=== PATIENT | male | born 1970 | race Caucasian/White ===

== ENCOUNTER 2019-04-17 07:53 | Day surgery (SDC) | payer OTHER ==
[~2019-04-17 07:53] MED LIST: Lactated Ringers 1,000 ML IV SCH; Lidocaine 1%/Sod Bicarbonate in NS 8.4% 1 ML Syringe IDERM PRN; Sodium Chloride 0.9% 10 ML Syringe FLUSH PRN
[2019-04-17] MEDS ORDERED: Propofol 200 MG/20 ML SDV ONE ×2 (08:08→08:09)
[2019-04-17] MEDS ORDERED: fentaNYL 250 MCG/5 ML SDV ONE (08:24)
[2019-04-17] MEDS ORDERED: Midazolam 1 MG/ML 2 ML SDV ONE (08:24)
[2019-04-17] MEDS ORDERED: Lidocaine 1% 8 ML ONE (08:25)
[2019-04-17] MEDS ORDERED: Rocuronium 50 MG/5 ML Vial ONE ×2 (08:25→11:13)
[2019-04-17] MEDS ORDERED: Succinylcholine/Sod PF 100 MG/5 ML SYRINGE IV ONE (08:25)
[2019-04-17] MEDS ORDERED: Lidocaine 1% 50 ML MDV ONE (08:46)
[2019-04-17] MEDS ORDERED: Albuterol 0.083% 2.5 MG/3 ML Neb Soln ONE (08:53)
[2019-04-17] MEDS ORDERED: Albuterol 0.083% 2.5 MG/3 ML Neb Soln NEB ONE (09:00)
[2019-04-17] MEDS ORDERED: HYDROmorphone 0.5 MG/0.5 ML Syringe IVPUSH PRN (09:15)
[2019-04-17] MEDS ORDERED: fentaNYL 100 MCG/2 ML SDV IVPUSH PRN (09:15)
[2019-04-17] MEDS ORDERED: diphenhydrAMINE 50 MG/ML SDV IVPUSH PRN (09:15)
[2019-04-17] MEDS ORDERED: Ondansetron 4 MG/2 ML SDV IVPUSH PRN (09:15)
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
[2019-04-17] MEDS ORDERED: ceFAZolin 1 GM Vial ONE (09:47)
[2019-04-17] MEDS ORDERED: Ketamine 500 mg/10 ML MDV ONE (09:58)
[2019-04-17] MEDS ORDERED: Dexamethasone 4 MG/ML 5 ML MDV ONE (10:00)
[2019-04-17] MEDS ORDERED: Ketorolac 30 MG/ML SDV ONE (10:00)
[2019-04-17] MEDS ORDERED: Lactated Ringers 0 ML ONE (10:02)
[2019-04-17] MEDS ORDERED: Lactated Ringers 1,000 ML ONE ×2 (10:03→14:33)
[2019-04-17] MEDS ORDERED: HYDROmorphone 0.5 MG/0.5 ML Syringe ONE ×2 (10:31→10:32)
[2019-04-17] MEDS ORDERED: ePHEDrine Sulfate/0.9% NaCl/Pf 25 MG/5 ML SYRINGE IV ONE (10:47)
[2019-04-17] MEDS ORDERED: Albuterol 6.7 GM Inhaler INH ONE (12:17)
--- NOTE | 2019-04-17 12:51 | PCM.POSTAN ---
POST ANESTHESIA ASSESSMENT - MENTAL STATUS Mental Status: Somnolent - VITAL SIGNS Vital Signs: Last Vital Signs Temp 36.3 C 04/17/19 12:36 Pulse 95 04/17/19 12:36 Resp 19 04/17/19 12:36 BP 145/71 H 04/17/19 12:36 Pulse Ox 93 L 04/17/19 12:36 - RESPIRATORY Respiratory Status: Respiratory Rate WNL, Airway Patent, Supplemental Oxygen - CARDIOVASCULAR CV Status: Pulse Rate WNL, Blood Pressure Stable - GASTROINTESTINAL GI Status: No Symptoms - PAIN Pain Score: 0 - POST OP HYDRATION Hydration Status: Adequate & Stable
--- NOTE | 2019-04-17 14:36 | PCM48HPAN ---
Post Anesthesia Note - EVALUATION WITHIN 48HRS OF ANESTHETIC Vital Signs in Normal Range: Yes Patient Participated in Evaluation: Yes Respiratory Function Stable: Yes (95% current saturations, recommended CPAP at home ) Airway Patent: Yes Cardiovascular Function Stable: Yes Hydration Status Stable: Yes Pain Control Satisfactory: Yes (pts pain will be treated by RN) Nausea and Vomiting Control Satisfactory: Yes Mental Status Recovered: Yes Vital Signs: Last Vital Signs Temp 36.4 C 04/17/19 13:36 Pulse 73 04/17/19 14:30 Resp 17 04/17/19 14:30 BP 141/89 H 04/17/19 14:30 Pulse Ox 93 L 04/17/19 14:30
--- NOTE | 2019-04-18 08:10 | OR ---
DATE OF OPERATION: 04/17/2019 SURGEON: Jose Eduardo Larson MD PREOPERATIVE DIAGNOSIS: Umbilical hernia with incarceration. POSTOPERATIVE DIAGNOSIS: Umbilical hernia with incarceration. OPERATION PERFORMED: Laparoscopic umbilical hernia repair with mesh. ANESTHESIA: General endotracheal. ESTIMATED BLOOD LOSS: About 10 mL. COMPLICATIONS: None. NEED FOR ASSISTANCE: Skilled assistance was needed in this case. Hydro Generation Manager helped with patient positioning, holding the camera during the operation, and wound dressing at the end of the case. INDICATIONS AND CONSENT: The patient is a 49-year-old male who has had umbilical hernia for several years. This has been getting larger as the patient is also morbidly obese with BMI of 49.9. The umbilicus eventually was not reducible with contents in there, was causing some mild pain. Therefore, the patient did not attempt to reduce it further. This has been going on for several months. Eventually, the patient presented to my clinic wanting to repair as the abdominal pain was slightly getting worse with time. I evaluated the patient. On exam, the umbilical hernia was protruding with contents in the hernia. Attempts to reduce the hernia produced some pain. Therefore, I did not reduce the hernia completely. I did discuss with the patient that this is the time to repair this hernia. The hernia was about 3 to 4 cm on clinical exam. I discussed with the patient risks, benefits, and the alternatives. Risks include infection, bleeding, wound complications, infection off the mesh, blood clots, pain, recurrence, injury, and possible need for further interventions. The patient understood and agreed to proceed with the procedure. Informed consent was obtained. DESCRIPTION OF PROCEDURE: The patient was taken to the operating room and placed in the supine position. Following the induction of general endotracheal anesthesia, preop antibiotics consisting of Ancef were provided. SCDs were placed. The patient was padded appropriately. Then, a formal time-out was performed. Then, the procedure was started. We began by accessing the abdomen with a Veress needle in the left upper quadrant and insufflating the abdomen to 15 mmHg. Then, a 5 mm trocar was placed in the left lateral abdomen under direct visualization of laparoscope. Upon inspection of the abdomen, there was no injury due to Veress needle insertion or trocar insertion. Then, 2 additional trocars, one 12 mm, and another one 5 mm, were placed in the left lateral abdomen caudally from the prior trocar. Then, clearly, omentum could be seen entering the umbilical hernia defect. This was taken down bluntly with graspers while applying pressure to the umbilical hernia. There was a large amount of omentum incarcerated into the umbilical hernia. These were all reduced into the abdomen. Bleeding from this reduction was minimal. There was no use of cautery. Once this was done, the edges of the hernia defect were cauterized slightly to allow healing of the defect. After this was done, the defect was measured to be 3.5 cm, and this was closed using 0 PDS stitches in a transfascial fashion using Solis-Catina device. Once the hernia defect was reapproximated, it was determined that an 11.4 cm diameter mesh will be sufficient to cover this hernia defect. Therefore, 11 cm rounded mesh was brought into the field. It was marked appropriately, and stay sutures were placed in each of the 4 corners using 2-0 Prolene stitches. Then, once the abdomen was marked appropriately and the mesh marked, the mesh was placed into the abdominal cavity through the 12 mm trocar, and the stay sutures were retrieved through the stab incision made through the abdominal wall. The mesh was placed in such a way that after stitches were placed and tied down, it was lying flat across the abdominal wall without any wrinkles. The SorbaFix device was used to place tacks around the mesh in a double crown fashion, and additional tacks were placed through the mid of the mesh to make sure the mesh was tightly adherent to the abdomen. Once this was done, the 12 mm trocar site was closed at the fascia level with 0 Vicryl stitches, and the skin at all incision sites was closed with 4-0 Monocryl suture. Stab incisions were not closed with any suture, but Dermabond. Dermabond was applied to all the incision sites. Once this was done, the redundant skin at the umbilicus was tacked down with pressure dressings, and an abdominal binder was applied to the patient. Of note, 1% lidocaine plain was injected through the abdomen in all incision sites. This marked the end of the procedure. At the end of the procedure, all instruments, sharps, and sponges were accounted and found to be correct x2. The patient will be taken to the PACU for recovery. The plan is for the patient to return home today and continue postop care at home. The patient will come back to clinic in 2 weeks for postop check. BERNARDO /[id number] MTDMichael
== END 2019-04-17 14:50 | disposition home or self-care (01) ==
LOC: JD.SDS 07:53
PROVIDERS: ATTEND Surgery
DX: K42.0 Umbilical hernia with obstruction, without gangrene (principal); G47.33 Obstructive sleep apnea (adult) (pediatric); G89.29 Other chronic pain; E66.01 Morbid (severe) obesity due to excess calories; Z90.49 Acquired absence of other specified parts of digestive tract; Z79.899 Other long term (current) drug therapy; Z79.82 Long term (current) use of aspirin; Z98.890 Other specified postprocedural states; Z88.8 Allergy status to other drugs, medicaments and biological substances; Z91.018 Allergy to other foods; Z68.42 Body mass index [BMI] 45.0-49.9, adult; Z99.89 Dependence on other enabling machines and devices
CPT/HCPCS: 36415; 49653; 80053; 85025; 93005; 94640; A9270; J0171; J0330; J0690; J1100; J1170; J1885; J2001; J2250; J2370; J2704; J2710; J3010; J7120; 00790

== ENCOUNTER 2020-04-15 09:07 | Emergency (ER) | payer OTHER ==
--- NOTE | 2020-04-15 09:28 | EDM.PDOC ---
ED HPI GENERAL MEDICAL PROBLEM - General Chief Complaint: Lower Extremity Injury/Pain Stated Complaint: RT ANKLE PAIN Time Seen by Provider: 04/15/20 09:20 Source of Information: Reports: Patient History Limitations: Reports: No Limitations - History of Present Illness INITIAL COMMENTS - FREE TEXT/NARRATIVE: 50-year-old male attends the ED complaining of severe pain in his right ankle. No known injury. Symptoms started on April 12. Pain is primarily localized to the distal Achilles tendon at insertion into the calcaneus. He states he is walking with a significant limp. No problems with the left foot. He has no history of gout. He has no pain in his metatarsal joints or midfoot. Shoes are relatively new. Onset: Gradual Onset Date: 04/12/20 Duration: Day(s):, Constant, Getting Worse Location: Reports: Lower Extremity, Right (Right posterior) Quality: Reports: Ache ( foot at the insertion site of the Achilles tendon.), Throbbing Severity: Moderate Improves with: Reports: Rest Worsens with: Reports: Other Context: Denies: Activity, Exercise (Weightbearing and walking. Walks without definitive limp.), Lifting, Sick Contact, Trauma, Other Associated Symptoms: Denies: Confusion, Chest Pain, Cough, cough w sputum, Diaphoresis, Fever/Chills, Headaches, Loss of Appetite, Malaise, Nausea/Vomiting, Rash, Seizure, Shortness of Breath, Syncope, Weakness Right Ankle Pain Score (Numeric/FACES): 10 - Related Data Allergies Allergy/AdvReac Type Severity Reaction Status Date / Time nut - unspecified Allergy Anaphylactic Verified 04/15/20 09:21 Shock aspartame AdvReac Headache Verified 04/15/20 09:21 topiramate AdvReac Change Verified 04/15/20 09:21 Mental Status Home Meds: Home Meds Albuterol Sulfate [Albuterol Sulfate Hfa] 2 puff IH Q6H PRN 04/14/19 [History] Aspirin [Halfprin] 81 mg PO DAILY 04/14/19 [History] Budesonide/Formoterol [Symbicort 160-4.5 MCG] 2 puff INH BID PRN 04/14/19 [History] Cholecalciferol (Vitamin D3) [Vitamin D3] 4,000 unit PO DAILY 04/14/19 [History] Loratadine [Claritin] 10 mg PO DAILY 04/14/19 [History] Docusate Sodium [Colace] 100 mg PO BID 15 Days #30 capsule 04/17/19 [Rx] Fluticasone Propionate [Flonase] 2 inh NASBOTH DAILY 04/17/19 [History] oxyCODONE 5 mg PO Q4H PRN 4 Days #24 tab 04/17/19 [Rx] Diclofenac Sodium [Voltaren] 75 mg PO BIDMEALS #24 tab.cr 04/15/20 [Rx] predniSONE [Prednisone] 20 mg PO ASDIRECTED #18 tablet 04/15/20 [Rx] Past Medical History HEENT History: Reports: Allergic Rhinitis, Impaired Vision, Other (See Below) Other HEENT History: Keratoconus Cardiovascular History: Reports: None Respiratory History: Reports: Asthma, Sleep Apnea Gastrointestinal History: Reports: Other (See Below) Other Gastrointestinal History: Umbilical hernia Genitourinary History: Reports: None Musculoskeletal History: Reports: None Neurological History: Reports: Migraines Psychiatric History: Reports: None Endocrine/Metabolic History: Reports: Obesity/BMI 30+, Vitamin D Deficiency Hematologic History: Reports: None Immunologic History: Reports: None Oncologic (Cancer) History: Reports: None Dermatologic History: Reports: Psoriasis - Past Surgical History Head Surgeries/Procedures: Reports: None HEENT Surgical History: Reports: None Cardiovascular Surgical History: Reports: None Respiratory Surgical History: Reports: None GI Surgical History: Reports: Appendectomy Male Surgical History: Reports: None Endocrine Surgical History: Reports: None Neurological Surgical History: Reports: None Musculoskeletal Surgical History: Reports: None Oncologic Surgical History: Reports: None Dermatological Surgical History: Reports: None Social & Family History - Caffeine Use Caffeine Use: Reports: Soda - Living Situation & Occupation Living situation: Reports: Single Occupation: Employed Review of Systems - Review of Systems Review Of Systems: See Below Constitutional: Denies: Chills, Diaphoresis, Fever, Weakness, Other Eyes: Reports: Glasses Ears: Reports: No Symptoms Nose: Reports: No Symptoms Mouth/Throat: Reports: No Symptoms Respiratory: Reports: Shortness of Breath, Wheezing, Cough. Denies: Pleuritic Chest Pain (History of asthma.), Sputum (Occasional cough), Hemoptysis Cardiovascular: Denies: Chest Pain, Edema, Irregular Heart Rate, Lightheadedness GI/Abdominal: Reports: No Symptoms Genitourinary: Reports: No Symptoms Musculoskeletal: Reports: Back Pain (Occasional.) Skin: Reports: No Symptoms Neurological: Reports: No Symptoms Psychiatric: Reports: No Symptoms ED EXAM, GENERAL - Physical Exam Exam: See Below Exam Limited By: No Limitations General Appearance: Alert, WD/WN, No Apparent Distress, Other (He is resting with his right foot up on a pillow.) Eye Exam: Bilateral Eye: Normal Inspection Extremities: Other (Emanation of his right lower extremity shows very minimal to dependent edema. Mild popliteal swelling suggesting Benjamin's cyst. No clinical evidence of DVT. Color is normal. Pain is localized to the insertion of the Achilles tendon posteriorly over the Achilles tendon bursa. It is likely secondary to pressure on this area from his shoes. There is no increased warmth in the true ankle joint. He denies spraining or injuring the joint. He believes he may have arthritis in his ankle.) Neurological: Alert, Oriented, CN II-XII Intact, Normal Cognition Psychiatric: Normal Affect, Normal Mood, Other (Leah apprehensive about examination.) Skin Exam: Warm, Dry, Intact, Normal Color, No Rash Course - Vital Signs Last Recorded V/S: Last Vital Signs Temp 36.3 C 04/15/20 09:22 Pulse 89 04/15/20 09:22 Resp 18 04/15/20 09:22 BP 154/119 H 04/15/20 09:22 Pulse Ox 98 04/15/20 09:22 - Orders/Labs/Meds Orders: Active Orders 24 hr Category Date Time Status Foot Comp Min 3V Rt [CR] Stat Exams 04/15/20 09:21 Taken Durable Medical Equipment for Discharge [DME for Oth 04/15/20 10:00 Ordered Discharge] [COMM] Routine - Radiology Interpretation Free Text/Narrative:: 50-year-old male presents to the ED for evaluation of right ankle and foot pain. Examination reveals pain is well localized to the insertion of the Achilles tendon with Achilles tendon bursitis evident. There is no increased warmth from the true ankle joint midfoot or metatarsals. Plan x-ray of the foot will be done. Patient is very heavy and little over 400 pounds. - Re-Assessments/Exams Free Text/Narrative Re-Assessment/Exam: 04/15/20 10:11 x-rays of the right foot reveal a prominent calcaneal spur at the insertion site of the Achilles tendon. This indicates that the Achilles tendon strain on the calcaneus has been going on for a lengthy period of time no doubt secondary to weighing 400 pounds. He does have a combination of Achilles tendinitis bursitis at this time. He will be placed on crutches to try and give the right foot a rest to heal. Discharged on Voltaren 75 mg by mouth twice daily for the next 12 days in combination with prednisone 20 mg by mouth twice daily for 6 days with breakfast and supper and then once in the morning only for another 6 days to relieve inflammation in this area. Departure - Departure Time of Disposition: 10:01 Disposition: Home, Self-Care 01 Condition: Fair Clinical Impression: Achilles tendinitis of right lower extremity, Achilles bursitis of right lower extremity - Discharge Information *PRESCRIPTION DRUG MONITORING PROGRAM REVIEWED*: Not Applicable *COPY OF PRESCRIPTION DRUG MONITORING REPORT IN PATIENT NEETA: Not Applicable Prescriptions: predniSONE [Prednisone] 20 mg PO ASDIRECTED #18 tablet Diclofenac Sodium [Voltaren] 75 mg PO BIDMEALS #24 tab.cr Instructions: Achilles Tendinitis With Rehab-SportsMed, Tendinitis, [id number], Achilles Tendinitis Referrals: Miladis Neal RESPIRATORY EQUIPMENT ASSISTANT [Primary Care Provider] - Forms: ED Department Discharge Additional Instructions: Evaluation in the emergency room today in regards to severe pain coming from the posterior aspect of your right foot ankle area. Exam reveals it is coming from the Achilles tendon insertion and Achilles bursa is inflamed in this area. Rays of the right foot reveal a spur coming off the back of the calcaneus bone where the Achilles tendon inserts. This is due to prolonged excessive pulling of the Achilles tendon on the back of the heel bone. Treatment at this time is to give it as much rest as possible by taking the weight off of the foot. Trial of crutches for the next couple of weeks. Medications are to be anti-inflammatory Voltaren 75 mg twice daily usually with breakfast and supper for the next 12 days. Deltasone 20 mg with breakfast and supper for the next 6 days and then once in the morning only for another 6 days to try and reduce the inflammation in the bursa. If problems persist suggest follow-up with no experience Dr. Loo whom is at the [facility]. Just Iftikhar wrap on during the day and off at night. You can make an appointment with him by phoning [phone] Sepsis Event Note (ED) - Focused Exam Vital Signs: Vital Signs Temp Pulse Resp BP Pulse Ox 04/15/20 09:22 36.3 C 89 18 154/119 H 98 - My Orders Last 24 Hours: My Active Orders 04/15/20 09:21 Foot Comp Min 3V Rt [CR] Stat 04/15/20 10:00 Durable Medical Equipment for Discharge [DME for Discharge] [COMM] Routine - Assessment/Plan Last 24 Hours: My Active Orders 04/15/20 09:21 Foot Comp Min 3V Rt [CR] Stat 04/15/20 10:00 Durable Medical Equipment for Discharge [DME for Discharge] [COMM] Routine
--- NOTE | 2020-04-15 10:18 | CR ---
Right foot: 4 views of the right foot were obtained. Comparison: No prior foot exam is available. Plantar spur is noted. Spurring is noted at the attachment of the Achilles tendon to the calcaneus. No acute fracture, dislocation or other bony abnormality is appreciated. Impression: 1. Calcaneal spurs. 2. No additional abnormality is appreciated on right foot exam. Diagnostic code #2
== END 2020-04-15 10:50 | disposition home or self-care (01) ==
LOC: JD.ED 09:07
DX: M76.61 Achilles tendinitis, right leg (principal); J45.909 Unspecified asthma, uncomplicated; E66.9 Obesity, unspecified; Z68.43 Body mass index [BMI] 50.0-59.9, adult; Z91.018 Allergy to other foods; Z88.8 Allergy status to other drugs, medicaments and biological substances; Z79.899 Other long term (current) drug therapy; Z79.82 Long term (current) use of aspirin
CPT/HCPCS: 73630-26-RT; 73630-RT; 99283; 99283-25

== ENCOUNTER 2021-08-27 08:46 | Emergency (ER) | payer OTHER ==
[2021-08-27] MEDS ORDERED: Albuterol/Ipratropium 3.0-0.5 MG/3 ML Neb Soln NEB ONE (09:04)
== END 2021-08-27 10:55 | disposition home or self-care (01) ==
LOC: JD.ED 08:46
DX: J45.20 Mild intermittent asthma, uncomplicated (principal); E66.9 Obesity, unspecified; Z68.30 Body mass index [BMI] 30.0-30.9, adult; Z91.018 Allergy to other foods; Z88.8 Allergy status to other drugs, medicaments and biological substances; Z79.899 Other long term (current) drug therapy; Z79.82 Long term (current) use of aspirin; Z90.49 Acquired absence of other specified parts of digestive tract
CPT/HCPCS: 94640; 99284; J7620-GY

== ENCOUNTER 2022-04-13 08:24 | Inpatient (IN) | payer OTHER ==
[2022-04-13] MEDS ORDERED: Sodium Chloride 0.9% 10 ML Syringe FLUSH PRN (08:45)
[2022-04-13] MEDS ORDERED: Diltiazem 25 MG/5 ML SDV IVPUSH ONE ×2 (08:46→11:04)
[2022-04-13] MEDS ORDERED: Apixaban 5 MG Tab PO ONE (08:47)
[2022-04-13] MEDS ORDERED: Levalbuterol HCl 1.25 MG/3 ML Neb NEB ONE (08:54)
[2022-04-13] MEDS: Diltiazem 125 MG in Sodium Chloride 0.9% 100 ML IV SCH ×2 (09:03→17:14)
[2022-04-13] MEDS ORDERED: Furosemide 20 MG/2 ML VIAL IVPUSH ONE ×2 (09:36→16:40)
[2022-04-13] MEDS ORDERED: Non-Formulary Medication 1 Each (Albuterol 8.5 GM Hfa.Aer.Ad) IH PRN (13:15)
[2022-04-13] MEDS ORDERED: Docusate Sodium 100 MG Cap PO PRN (13:20)
[2022-04-13] MEDS ORDERED: Acetaminophen 325 MG Tab PO PRN (13:20)
[2022-04-13] MEDS ORDERED: Levalbuterol HCl 0.63 MG/3 ML Neb NEB PRN (13:24)
[2022-04-13] MEDS ORDERED: Metoprolol Tartrate 50 MG Tab PO SCH ×2 (13:32→15:00)
[2022-04-13] MEDS: Levalbuterol HCl 1.25 MG/3 ML Neb NEB PRN ×2 (13:42→18:51)
[2022-04-13] MEDS: Famotidine 20 MG Tab PO SCH ×2 (14:02→22:15)
[2022-04-13] MEDS ORDERED: Dextromethorphan HBr 30 MG/5 ML Susp ML PO PRN (14:21)
[2022-04-13] MEDS ORDERED: Dextromethorphan HBr 30 MG/5 ML Susp ML PO SCH (17:00)
[2022-04-13] MEDS ORDERED: Albuterol 6.7 GM Inhaler INH PRN (17:02)
[2022-04-13] MEDS ORDERED: Albuterol 6.7 GM Inhaler INH ONE (17:09)
[2022-04-13] MEDS ORDERED: Iopamidol 755 Mg/ML 100 ML Bottle IVPUSH ONE (17:14)
[2022-04-13] MEDS ORDERED: Sodium Chloride 0.9% 10 ML Syringe FLUSH ONE (17:14)
[2022-04-13] MEDS ORDERED: Sodium Chloride 0.9% 100 ML IV SCH (17:15)
[2022-04-13] MEDS: Formoterol/Mometasone 200-5 MCG 8.8 GM Inhaler IH PRN (17:24)
[2022-04-13] MEDS: Dextromethorphan HBr 30 MG/5 ML Susp ML PO PRN (18:16)
[2022-04-13] MEDS ORDERED: LORazepam 2 MG/ML SDV IVPUSH ONE (18:38)
[2022-04-13] MEDS ORDERED: LORazepam 2 MG/ML SDV ONE (18:43)
[2022-04-13] MEDS: Metoprolol Tartrate 50 MG Tab PO SCH (22:15)
[2022-04-13] MEDS: Apixaban 5 MG Tab PO SCH (22:15)
[2022-04-14] MEDS: Metoprolol Tartrate 50 MG Tab PO SCH (05:14)
[2022-04-14] MEDS ORDERED: Furosemide 20 MG/2 ML VIAL IVPUSH ONE (06:42)
[2022-04-14] MEDS ORDERED: LORazepam 2 MG/ML SDV IVPUSH PRN (07:52)
[2022-04-14] MEDS: Formoterol/Mometasone 200-5 MCG 8.8 GM Inhaler IH PRN ×2 (08:04→20:21)
[2022-04-14] MEDS: Aspirin 81 MG Tab.EC PO SCH (08:17)
[2022-04-14] MEDS: Famotidine 20 MG Tab PO SCH ×2 (08:17→21:20)
[2022-04-14] MEDS: Apixaban 5 MG Tab PO SCH ×2 (08:17→21:20)
[2022-04-14 10:06] LABS: HEMOGLOBIN A1C 5.9 %
[2022-04-14] MEDS: Diltiazem 125 MG in Sodium Chloride 0.9% 100 ML IV SCH (11:58)
[2022-04-14] MEDS: Metoprolol Tartrate 25 MG Tab PO SCH ×2 (12:46→21:21)
[2022-04-15] MEDS: Metoprolol Tartrate 25 MG Tab PO SCH (05:35)
[2022-04-15] MEDS: Formoterol/Mometasone 200-5 MCG 8.8 GM Inhaler IH PRN ×2 (07:44→20:48)
[2022-04-15] MEDS: Loratadine 10 MG Tab PO SCH (08:23)
[2022-04-15] MEDS: Apixaban 5 MG Tab PO SCH ×2 (08:23→20:05)
[2022-04-15] MEDS: Aspirin 81 MG Tab.EC PO SCH (08:23)
[2022-04-15] MEDS: Famotidine 20 MG Tab PO SCH ×2 (08:23→20:05)
[2022-04-15] MEDS ORDERED: Metoprolol Tartrate 25 MG Tab PO ONE (08:30)
[2022-04-15] MEDS ORDERED: Furosemide 20 MG/2 ML VIAL IVPUSH SCH (09:00)
[2022-04-15] MEDS: Levalbuterol HCl 1.25 MG/3 ML Neb NEB PRN ×2 (09:30→15:03)
[2022-04-15] MEDS ORDERED: Metoprolol Tartrate 50 MG Tab PO ONE (14:05)
[2022-04-15] MEDS ORDERED: Metoprolol Tartrate 100 MG Tab PO SCH (21:00)
[2022-04-16] MEDS: Formoterol/Mometasone 200-5 MCG 8.8 GM Inhaler IH PRN ×2 (08:45→20:23)
[2022-04-16] MEDS: Aspirin 81 MG Tab.EC PO SCH (08:56)
[2022-04-16] MEDS: Famotidine 20 MG Tab PO SCH ×2 (08:56→20:59)
[2022-04-16] MEDS: Loratadine 10 MG Tab PO SCH (08:56)
[2022-04-16] MEDS: Metoprolol Tartrate 25 MG Tab PO SCH ×2 (08:56→20:54)
[2022-04-16] MEDS: Apixaban 5 MG Tab PO SCH ×2 (08:56→20:59)
[2022-04-16] MEDS ORDERED: Furosemide 20 MG Tab PO SCH (09:00)
[2022-04-16] MEDS ORDERED: Sodium Chloride 0.9% 500 ML IV ONE (10:31)
[2022-04-16] MEDS ORDERED: Sodium Chloride 0.9% 250 ML ONE (10:34)
[2022-04-16] MEDS ORDERED: Sodium Chloride 0.9% 250 ML IV ONE (10:45)
[2022-04-16] MEDS ORDERED: Sodium Chloride 0.9% 1,000 ML IV SCH (10:45)
[2022-04-16] MEDS ORDERED: Sodium Chloride 0.9% 500 ML IV SCH (11:00)
[2022-04-17] MEDS: Formoterol/Mometasone 200-5 MCG 8.8 GM Inhaler IH PRN ×2 (08:38→20:16)
[2022-04-17] MEDS: Loratadine 10 MG Tab PO SCH (08:55)
[2022-04-17] MEDS: Metoprolol Tartrate 25 MG Tab PO SCH ×2 (08:55→20:48)
[2022-04-17] MEDS: Aspirin 81 MG Tab.EC PO SCH (08:55)
[2022-04-17] MEDS: Famotidine 20 MG Tab PO SCH ×2 (08:55→20:21)
[2022-04-17] MEDS: Diltiazem 120 MG Cap.CD PO SCH (08:55)
[2022-04-17] MEDS: Apixaban 5 MG Tab PO SCH ×2 (08:55→20:21)
[2022-04-17] MEDS ORDERED: Benzocaine/Cetylpyridinium/Menthol Lozenge MUCMEM PRN (16:37)
[2022-04-17] MEDS: Dextromethorphan HBr 30 MG/5 ML Susp ML PO PRN (18:16)
[2022-04-17] MEDS ORDERED: guaiFENesin 600 MG Tab.ER PO PRN (19:27)
[2022-04-17] MEDS: Ondansetron 4 MG/2 ML SDV IV PRN (20:42)
[2022-04-18] MEDS: Ondansetron 4 MG/2 ML SDV IV PRN ×3 (03:42→20:19)
[2022-04-18] MEDS: Diltiazem 120 MG Cap.CD PO SCH (08:18)
[2022-04-18] MEDS: Apixaban 5 MG Tab PO SCH ×2 (08:18→20:16)
[2022-04-18] MEDS: Aspirin 81 MG Tab.EC PO SCH (08:18)
[2022-04-18] MEDS: Loratadine 10 MG Tab PO SCH (08:18)
[2022-04-18] MEDS: Famotidine 20 MG Tab PO SCH ×2 (08:18→20:16)
[2022-04-18] MEDS: Metoprolol Tartrate 25 MG Tab PO SCH ×2 (08:19→20:16)
[2022-04-18] MEDS: Formoterol/Mometasone 200-5 MCG 8.8 GM Inhaler IH PRN ×2 (08:40→20:38)
[2022-04-19] MEDS: Formoterol/Mometasone 200-5 MCG 8.8 GM Inhaler IH PRN ×2 (08:42→20:40)
[2022-04-19] MEDS: Aspirin 81 MG Tab.EC PO SCH (09:12)
[2022-04-19] MEDS: Diltiazem 120 MG Cap.CD PO SCH (09:12)
[2022-04-19] MEDS: Famotidine 20 MG Tab PO SCH ×2 (09:12→20:34)
[2022-04-19] MEDS: Apixaban 5 MG Tab PO SCH ×2 (09:13→20:34)
[2022-04-19] MEDS: Metoprolol Tartrate 25 MG Tab PO SCH ×2 (09:13→20:35)
[2022-04-19] MEDS: Loratadine 10 MG Tab PO SCH (09:13)
[2022-04-20] MEDS: Formoterol/Mometasone 200-5 MCG 8.8 GM Inhaler IH PRN (08:07)
[2022-04-20] MEDS: Loratadine 10 MG Tab PO SCH (08:56)
[2022-04-20] MEDS: Apixaban 5 MG Tab PO SCH (08:56)
[2022-04-20] MEDS: Famotidine 20 MG Tab PO SCH (08:56)
[2022-04-20] MEDS: Diltiazem 120 MG Cap.CD PO SCH (08:57)
[2022-04-20] MEDS: Aspirin 81 MG Tab.EC PO SCH (08:57)
[2022-04-20] MEDS: Metoprolol Tartrate 25 MG Tab PO SCH (09:00)
== END 2022-04-20 12:49 | disposition home or self-care (01) | DRG 309 ==
LOC: JD.ED 08:24 → JD.ICU 12:16 → JD.MS 04-18 16:01
PROVIDERS: ADMIT Internal Medicine; ATTEND Internal Medicine
DX: R06.02 Shortness of breath (principal); I48.91 Unspecified atrial fibrillation; N17.9 Acute kidney failure, unspecified; Z68.43 Body mass index [BMI] 50.0-59.9, adult; R94.31 Abnormal electrocardiogram [ECG] [EKG]; G47.30 Sleep apnea, unspecified; G43.909 Migraine, unspecified, not intractable, without status migrainosus; E66.01 Morbid (severe) obesity due to excess calories; F41.9 Anxiety disorder, unspecified; L40.9 Psoriasis, unspecified; I10 Essential (primary) hypertension; J45.20 Mild intermittent asthma, uncomplicated; E55.9 Vitamin D deficiency, unspecified; Z86.73 Personal history of transient ischemic attack (TIA), and cerebral infarction without residual deficits; Z79.51 Long term (current) use of inhaled steroids; Z79.52 Long term (current) use of systemic steroids; Z79.899 Other long term (current) drug therapy; Z98.890 Other specified postprocedural states; Z88.8 Allergy status to other drugs, medicaments and biological substances; Z91.018 Allergy to other foods; Z90.49 Acquired absence of other specified parts of digestive tract
CPT/HCPCS: 36415; 71045; 80053; 83735; 83880; 84443; 84484; 85025; 93005; 94640; A9270; J1940; J3490 ×5; J7612; 71275; 71275-26; 80048; 83036; 93010; 93307; 94760; 94761; 96365; 96366; 96375; 96376; 97116-GP; 97162-GP; 99223; 99233; 99239; 99284; 99285-25; J2060; J2405; J7040; J7050